=== PATIENT | male | born 1995 | race Caucasian/White ===

== ENCOUNTER 2016-10-25 17:44 | Emergency (ER) | payer OTHER ==
[2016-10-25 17:52] VITALS: PULSE 66; O2SAT 96
--- NOTE | 2016-10-25 19:42 | EDPHY ---
H & P Stated Complaint: Fell onto right wrist 1 week go. Repeat injury. Time Seen by Provider: 10/25/16 19:42 HPI/ROS: HPI: 20-year-old male who presents with Chief Complaint: Right hand pain Location: Right hand Quality: Pain Duration: Last few days Signs and Symptoms: + mild swelling, No bleeding, no radiation, no numbness, no weakness, no tingling, no incontinence, no decreased range of motion Timing: Acute on chronic Severity: [id number] Context: Patient reports that he was water skiing the last few days with considerable use of his right hand. Has noted some swelling over his scaphoid area since yesterday. History of a thumb fracture at age 4, scaphoid fracture at age 7 and boxer's fracture in his teenage years. Right hand dominant. Modifying Factors: Has not tried [id number] medications or ice Comment: ROS: Constitutional: No fever, no chills, no weight loss Eyes: No blurred vision Respiratory: No shortness of breath, no cough Cardiovascular: No chest pain Gastrointestinal: No nausea, no vomiting no diarrhea Genitourinary: No dysuria Extremities: No myalgias Neurologic: No weakness, no numbness Skin: No rashes Hematologic: No bruising, no bleeding Source: Patient Exam Limitations: No limitations - Personal History Current Tetanus Diphtheria and Acellular Pertussis (TDAP): Yes - Medical/Surgical History Hx Asthma: No Hx Chronic Respiratory Disease: No Hx Diabetes: No Hx Cardiac Disease: No Hx Renal Disease: No Hx Cirrhosis: No Hx Alcoholism: No Hx HIV/AIDS: No Hx Splenectomy or Spleen Trauma: No Other PMH: Orthopedic injuries. - Social History Smoking Status: Light smoker - Physical Exam Exam: CONSTITUTIONAL: Young adult white male, awake and alert, no obvious distress HEENT: Atraumatic and normocephalic, PERRL, EOMI. Tympanic membranes clear. . Oropharynx clear, no exudate and moist pink mucosa. Airway patent. No lymphadenopathy. No meningismus. Cardiovascular: Normal S1/S2, regular rate, regular rhythm, without murmur rub or gallop. PULMONARY/CHEST: Symmetrical and nontender. Clear to auscultation bilaterally Good air movement. No accessory muscle usage. ABDOMEN: Soft, nondistended, nontender, no rebound, no guarding, no peritoneal signs, no masses or organomegaly. No CVAT. EXTREMITIES: 2/2 pulses, mild swelling over the thenar eminence; no scaphoid tenderness; flexion and extension intact at the DIP and PIP joints. no deformities, no clubbing, no cyanosis or edema. NEUROLOGICAL: no focal neuro deficits. GCS 15. SKIN: Warm and dry, no erythema. no rash. Good capillary refill. Constitutional: Initial Vital Signs Temperature (C) 36.8 C 10/25/16 17:49 Heart Rate 66 10/25/16 17:49 Respiratory Rate 16 10/25/16 17:49 Blood Pressure 119/97 H 10/25/16 17:49 O2 Sat (%) 96 10/25/16 17:49 O2 Delivery Mode Room Air Allergies/Adverse Reactions: No Known Allergies Allergy (Unverified 10/25/16 17:52) Medical Decision Making - Diagnostics Imaging Results: Imaging Impressions Hand X-Ray 10/25/16 19:41 Impression: Healed fracture of fifth metacarpal. ED Course/Re-evaluation: X-rays obtained X-ray my read shows no acute fracture/dislocation. X-rays reviewed with Dr. Valadez No signs of neurovascular compromise/tenting of skin/compartment syndrome/ extremities and joints examined above and below area of concern and are neurovascularly intact. placed thumb spica splint. ashly HOBBS follow up Differential Diagnosis: Differential diagnosis includes but is not limited to contusion, fracture, dislocation, nerve injury. Departure - Departure Disposition: Home, Routine, Self-Care Clinical Impression: Thumb contusion Qualifiers: Encounter type: initial encounter Damage to nail status: without damage Laterality: right Qualified Code(s): S60.011A - Contusion of right thumb without damage to nail, initial encounter Condition: Good Instructions: Contusion in Adults (ED), Thumb Fracture (ED) Additional Instructions: Wear splint until pain free. Take ibuprofen 600-800 mg every 6-8 hours with food as needed for pain and inflammation. Apply ice for 30 minutes at a time; 2-3 times per day for the next 1-2 days. Follow up with Orthopedics in 7-10 days if symptoms persist or worsen. The x-rays obtained in the emergency department today demonstrate no evidence of an obvious fracture. Sometimes fractures are not obvious on the initial set of x-rays performed in the ED. For this reason, you should have repeat x-rays performed in 7-10 days if you are having any pain exclude the possibility of an occult fracture. Referrals: SOHEILA,LILIANA [Other] - As per Instructions Atif Hernandez MD [Medical Doctor] - As per Instructions
[2016-10-25 20:41] VITALS: BP 111/74; RESP 14; TEMP 97.9
== END 2016-10-25 20:41 | disposition home or self-care (01) ==
DX: S60.011A Contusion of right thumb without damage to nail, initial encounter (principal); F17.200 Nicotine dependence, unspecified, uncomplicated; W18.30XA Fall on same level, unspecified, initial encounter; Y99.8 Other external cause status; Y93.17 Activity, water skiing and wake boarding
CPT/HCPCS: L3807